=== PATIENT | male | born 1945 | race Caucasian/White ===

== ENCOUNTER 2017-04-19 07:01 | Inpatient (IN) | payer MEDICARE, BC ==
[~2017-04-19] VITALS: Ht 172.7 cm; Wt 81.0 kg
[2017-04-19] MEDS ORDERED: ONDANSETRON 4 MG INJ IV STA (07:19)
[2017-04-19] MEDS ORDERED: KETOROLAC 15 MG INJ IV STA (07:19)
[2017-04-19] MEDS ORDERED: SOD CHLORIDE 0.9% 1,000 ML IV STA (07:19)
--- NOTE | 2017-04-19 07:41 | ERD ---
ER Documentation Chief Complaint Chief Complaint sudden onset left flank pain with nausea and vomiting. no dysuria per pt HPI This is a 72-year-old man with a past medical history of hypertension, diabetes and a previous hernia repair who is presenting with acute onset severe sharp colicky left-sided flank pain radiating down into the left groin and nausea beginning at 330AM this morning. The patient does not carry a diagnosis of kidney stones in the past. He was given ibuprofen without relief which prompted the visit to the emergency department. The patient denies fever or chills, but he is sweating a little that he attributes to his left groin pain. The patient has had no headache or vision changes. The patient does not endorse neck or midline back pain. The patient denies lightheadedness or dizziness. The patient has had no chest pain or shortness of breath or trouble breathing. The patient denies vomiting. The patient denies changes to bowel movements or urination. He has not noticed any blood in his urine. The patient has had no focal deficits. The patient has had no weakness or numbness or tingling to the face or extremities. The patient's blood pressure is elevated. He did not take his blood pressure medications this morning. ROS All systems reviewed and are negative except as per history of present illness. Medications Home Meds Reported Medications Clonidine Patch (CLONIDINE PATCH) 0.3 Mg/24 Hr Patch, 1 PATCH.WK TD Q7D, #4 PATCH.WK 04/19/17 Nebivolol Hcl* (Bystolic*) 20 Mg Tablet, 20 MG PO DAILY, #30 TAB 04/19/17 Glimepiride* (Glimepiride*) 4 Mg Tablet, 4 MG PO BID WITH MEALS, TAB 04/19/17 Linagliptin/Metformin HCl (Jentadueto Xr 2.5 mg-1,000 mg) 1 Each Tab.bp.24h, 1 EACH PO BID, TAB 04/19/17 Allergies Allergies: Coded Allergies: No Known Allergy (Unverified , 04/19/17) PMhx/Soc History of Surgery: Yes (Hernia repair) Anesthesia Reaction: No Hx Neurological Disorder: No Hx Respiratory Disorders: No Hx Cardiac Disorders: Yes (HTN, DM) Hx Psychiatric Problems: No Hx Miscellaneous Medical Probl: No FmHx Family History: diabetes Physical Exam Vitals Vital Signs Date Time Temp Pulse Resp B/P Pulse Ox O2 Delivery O2 Flow Rate FiO2 04/19/17 10:40 94 15 214/98 97 Room Air 04/19/17 09:32 81 15 214/97 97 Room Air 04/19/17 07:06 97.8 75 16 250/106 100 Physical Exam Const: Mild distress 2/2 pain, mild diaphoresis, well-developed, well- nourished Head: Normocephalic, Atraumatic Eyes: Normal Conjunctiva. Extraocular movements intact. Pupils equal, round and reactive to light ENT: Normal External Ears, Nose and Mouth. Neck: Full range of motion. No meningismus. Resp: Clear to auscultation bilaterally, No wheezes, rales or rhonchi Cardio: Regular rate and rhythm. No murmurs, rubs or gallops Abd: Soft, non distended. Left lower quadrant abdominal pain with voluntary guarding. Normal bowel sounds Skin: No petechiae or rashes Back: No midline tenderness. Mild left sided CVA tenderness Ext: No cyanosis, or edema Neur: Awake and alert, oriented 4. Cranial nerves intact. No facial droop. Normal strength, sensation and coordination. Psych: Normal Mood and Affect Result Diagram: 04/19/1730 04/19/17 0730 Results 24 hrs Laboratory Tests Test 04/19/17 07:30 04/19/17 08:00 04/19/17 10:32 White Blood Count 13.510^3/ul Red Blood Count 5.6010^6/ul Hemoglobin 16.5g/dl Hematocrit 47.4% Mean Corpuscular Volume 84.6fl Mean Corpuscular Hemoglobin 29.5pg Mean Corpuscular Hemoglobin Concent 34.8g/dl Red Cell Distribution Width 13.2% Platelet Count 78738^3/UL Mean Platelet Volume 11.4fl Neutrophils % 86.0% Lymphocytes % 9.2% Monocytes % 3.9% Eosinophils % 0.0% Basophils % 0.2% Nucleated Red Blood Cells % 0.0/100WBC Neutrophils # 11.610^3/ul Lymphocytes # 1.210^3/ul Monocytes # 0.510^3/ul Eosinophils # 0.010^3/ul Basophils # 0.010^3/ul Nucleated Red Blood Cells # 0.010^3/ul Sodium Level 146mmol/L Potassium Level 3.8mmol/L Chloride Level 101mmol/L Carbon Dioxide Level 25mmol/L Anion Gap 24 Blood Urea Nitrogen 16mg/dl Creatinine 1.09mg/dl Glucose Level 302mg/dl Calcium Level 10.6mg/dl Total Bilirubin 0.7mg/dl Direct Bilirubin 0.00mg/dl Indirect Bilirubin 0.7mg/dl Aspartate Amino Transf (AST/SGOT) 69IU/L Alanine Aminotransferase (ALT/SGPT) 78IU/L Alkaline Phosphatase 83IU/L Total Protein 9.2g/dl Albumin 4.9g/dl Globulin 4.30g/dl Albumin/Globulin Ratio 1.13 Lipase 197U/L Urine Color STRAW Urine Clarity CLEAR Urine pH 7.0 Urine Specific [place] 1.010 Urine Ketones 1+mg/dL Urine Nitrite NEGATIVEmg/dL Urine Bilirubin NEGATIVEmg/dL Urine Urobilinogen NEGATIVEmg/dL Urine Leukocyte Esterase NEGATIVELeu/ul Urine Microscopic RBC 3/HPF Urine Microscopic WBC 0/HPF Urine Hemoglobin 1+mg/dL Urine Glucose 3+mg/dL Urine Total Protein NEGATIVEmg/dl Lactic Acid Level 5.8mmol/L Current Medications Medications (Trade) Dose Ordered Sig/Jose Ramon Route PRN Reason Start Time Stop Time Status Last Admin Dose Admin Sodium Chloride (NS) 1,000 ml @ 1,000 mls/hr Q1H STAT IV 04/19/17 07:19 04/19/17 08:18 DC 04/19/17 07:35 Ondansetron HCl (Zofran Inj) 4 mg ONCE STAT IV 04/19/17 07:19 04/19/17 07:20 DC 04/19/17 07:35 Ketorolac Tromethamine (Toradol) 15 mg ONCE STAT IV 04/19/17 07:19 04/19/17 07:20 DC 04/19/17 07:35 Morphine Sulfate (morphine) 6 mg ONCE ONCE IV 04/19/17 08:00 04/19/17 08:01 DC 04/19/17 08:06 Morphine Sulfate (morphine) 2 mg STK-MED ONCE .ROUTE 04/19/17 07:52 04/19/17 07:53 DC Morphine Sulfate (morphine) 4 mg STK-MED ONCE .ROUTE 04/19/17 07:53 04/19/17 07:54 DC IV Flush 10 ml 10 ml STK-MED ONCE .ROUTE 04/19/17 08:19 04/19/17 08:20 DC 04/19/17 08:34 Sodium Chloride (NS) 100 ml @ ud STK-MED ONCE .ROUTE 04/19/17 08:19 04/19/17 08:20 DC 04/19/17 08:34 Iodixanol 100 ml 100 ml STK-MED ONCE .ROUTE 04/19/17 08:19 04/19/17 08:20 DC 04/19/17 08:34 Ceftriaxone Sodium (Rocephin) 50 ml @ 100 mls/hr ONCE ONCE IVPB 04/19/17 09:00 04/19/17 09:29 DC 04/19/17 09:33 Hydromorphone HCl (Dilaudid) 1 mg ONCE STAT IV 04/19/17 08:50 04/19/17 08:52 DC 04/19/17 09:33 Hydralazine HCl (Apresoline) 10 mg ONCE ONCE IV 04/19/17 09:00 04/19/17 09:01 DC 04/19/17 09:33 Ondansetron HCl (Zofran Inj) 4 mg ER BRIDGE PRN IV NAUSEA AND/OR VOMITING 04/19/17 09:30 04/20/17 09:29 Acetaminophen 650 mg 650 mg ER BRIDGE PRN PO MILD PAIN/FEVER 04/19/17 09:30 04/20/17 09:29 Sodium Chloride (NS) 1,250 ml @ 1,000 mls/hr Q1H15M ONCE IV 04/19/17 09:30 04/19/17 10:44 DC 04/19/17 10:21 Miscellaneous Medication (Bystolic) 20 mg ONCE ONCE PO 04/19/17 10:30 04/19/17 10:31 DC 04/19/17 10:40 Clonidine (Catapres) 0.1 mg ONCE ONCE PO 04/19/17 10:30 04/19/17 10:31 DC 04/19/17 10:40 Procedures/MDM MDM The patient's presentation warrants further investigation. The patient's symptoms are concerning for a renal etiology of his symptoms. Nephrolithiasis is a possibility. The patient will need to be evaluated for pyelonephritis as well. I have decreased suspicion for gastroenteritis or obstruction. The patient has no pulsatile abdominal mass. I have low suspicion for AAA. The patient does have left lower quadrant tenderness. Diverticulitis is also possibility. The patient does not have peritoneal signs. I have decreased suspicion for bowel perforation. I have lower suspicion for mesenteric ischemia. LABS The patient's blood work was obtained and reviewed. The patient's CBC shows leukocytosis and left shift. The patient is afebrile, but I am concerned of a systemic infection. The patient is not anemic today. The patient does have a mild thrombocytopenia that does not need to be emergently treated. She does not have any signs of bleeding. The patient's CMP shows no signs of metabolic or electrolyte emergencies. He does have a mild hyperglycemia with an anion gap. However, given the localizing nature of his pain, I have less suspicion for DKA as the etiology of his symptoms. The patient will be given IV fluids in the emergency department. The patient has unremarkable renal function testing. He has a mild transaminitis that may be reactive. His lipase is within normal limits. The patient's lactic acid is within normal limits. EKG EKG read by me: Rate/Rhythm: Regular rate and rhythm at a rate of 80 Intervals: Normal [place] interval and QTc. Mildly prolonged QRS with signs that are consistent with right bundle branch block [place]: Left shifted Impression: Nonspecific repolarization abnormality but no evidence of acute ischemia or arrhythmia IMAGING CT abd/pelvis IMPRESSION: 1. 3 mm obstructing stone at the left ureterovesicular junction with mild left hydronephrosis and hydroureter. There is marked left perinephric and left periureteral inflammatory stranding and free fluid. Additional 4 mm left upper renal pole nonobstructing stone identified. 2. 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 Recommend urologic consultation. 3. Small sub-centimeter upper abdominal retroperitoneal lymph nodes are nonspecific. 4. 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 5. Tiny 4 mm hyperdense nodules at the gallbladder neck. This may represent small gallstones or gallbladder polyp. Electronically viewed and signed by .Jadiel Ragland MD, MD on 04/19/2017 08:41 TREATMENT/DISPOSITION The patient has left-sided urologic abnormalities that are concerning. There is possibility of ureteral stricture potentially related to neoplasm. There is also a nonobstructing zone out on the left-sided ureterovesicular junction. There is significant fat stranding around the area, and I am concerned about pyelonephritis. The patient received 30 mL/kg IV fluid in addition to Rocephin. Blood and urine cultures were sent off. Patient's infectious symptoms have not stabilized and the patient is at risk of rapid decompensation. The patient will be admitted for careful hydration, antibiotic therapy, and infectious source control. Severe Sepsis criteria: Infectious source: Pyelonephritis End organ damage indicated by: Lactate > 2.0 mmol/L Sepsis Management: Time of recognition of sepsis: 10:30AM Within 3 hours of recognition: Blood cultures x 2 before broad-spectrum antibiotics: Yes 30 ml/kg NS bolus: Completed Initial lactate: 5.8 Repeat lactate: Pending Time of recognition of septic shock: No septic shock Accepting Care Team Current data and ongoing care discussed. Admitting Physician: Micheline Microbiology Instructor(s): Will need Urology Outstanding Data: Culture results CRITICAL CARE NOTE Time: 35 minutes excluding all billable procedures. Treatments/Evaluations: Evaluation of the patient's medical record including previous records & current laboratory/imaging studies, close monitoring, potential interventions if hemodynamically unstable or cardiopulmonary decline or neurologic decline, maintaining tight fluid balance, any discussions with the family regarding the patient's status and prognosis. The patient will be admitted to Dr. Tobias in accordance with the patient's insurance. The patient was accepted by Dr. Tobias at 9:20 AM on April 19, 2017. The patient's blood pressure was elevated at greater than 120/80 while in the emergency department. The patient was otherwise stable with no evidence of hypertensive urgency or emergency or end organ damage. The patient was given hydralazine in the emergency department, but his blood pressure only slightly dropped. This will require further management in the hospital. Disclaimer: Inadvertent spelling and grammatical errors are likely due to EHR/ dictation software use and do not reflect on the overall quality of patient care. Note that the electronic time recorded on this note does not necessarily reflect the actual time of the patient encounter. Departure Diagnosis: Primary Impression: Pyelonephritis Additional Impressions: Ureteral obstruction Left nephrolithiasis Ureteral neoplasm Sepsis Sepsis type: sepsis due to unspecified organism Qualified Code: A41.9 - Sepsis, due to unspecified organism Condition: Serious NITZA PORTER MD Apr 19, 2017 07:41
[2017-04-19 07:46] LABS: BASOPHILS % 0.2 % (0.0-2.0); HEMATOCRIT 47.4 % (42.0-52.0); HEMOGLOBIN 16.5 g/dl (14.0-18.0); LYMPHOCYTES # 1.2 10^3/ul (0.8-2.9); LYMPHOCYTES % 9.2 % (15.0-51.0); MEAN CORPUSCULAR HEMOGLOBIN 29.5 pg (29.0-33.0); MEAN CORPUSCULAR HGB CONC 34.8 g/dl (32.0-37.0); MEAN CORPUSCULAR VOLUME 84.6 fl (82.0-101.0); MEAN PLATELET VOLUME 11.4 fl (7.4-10.4); MONOCYTE # 0.5 10^3/ul (0.3-0.9); MONOCYTES % 3.9 % (0.0-11.0); NEUTROPHIL # 11.6 10^3/ul (1.6-7.5); PLATELET COUNT 128 10^3/UL (140-415); RED CELL DISTRIBUTION WIDTH 13.2 % (11.5-14.5); WHITE BLOOD COUNT 13.5 10^3/ul (4.8-10.8)
[2017-04-19] MEDS ORDERED: morphine 2 MG INJ ONE (07:52)
[2017-04-19] MEDS ORDERED: morphine 4 MG/ML VIAL ONE (07:53)
[2017-04-19] MEDS ORDERED: morphine 10 MG INJ IV ONE (08:00)
[2017-04-19 08:13] LABS: ALBUMIN 4.9 g/dl (3.3-4.9); ALBUMIN/GLOBULIN RATIO 1.13; BILIRUBIN,INDIRECT 0.7 mg/dl (0-1.1); BILIRUBIN,TOTAL 0.7 mg/dl (0.2-1.3); CALCIUM 10.6 mg/dl (8.4-10.2); CREATININE 1.09 mg/dl (0.61-1.24); POTASSIUM 3.8 mmol/L (3.5-5.1); TOTAL PROTEIN 9.2 g/dl (6.1-8.1)
[2017-04-19] MEDS ORDERED: IODIXANOL LOCM 100 ML BTL ONE (08:19)
[2017-04-19] MEDS ORDERED: SOD CHLORIDE 0.9% 100 ML ONE (08:19)
[2017-04-19] MEDS ORDERED: LINA1TAB7 PO (08:31)
[2017-04-19] MEDS ORDERED: GLIM4TAB PO (08:31)
[2017-04-19] MEDS ORDERED: NEBI20TA2 PO (08:32)
[2017-04-19] MEDS ORDERED: CLON1PAT3 TD (08:34)
--- NOTE | 2017-04-19 08:41 | RADRPT ---
PROCEDURE: CT Abdomen and Pelvis with contrast. CLINICAL INDICATION: Abdominal pain TECHNIQUE: CT scan of the abdomen and pelvis with contrast was performed on a multidetector high-r esolution CT scanner. Coronal and sagittal reformatted images were obtained from the axial source im ages. Images were reviewed on a high-resolution PACS workstation. 80 cc of Isovue 300 iodinated cont rast was administered intravenously without reported complication. The total exam CTDI equals 13 mG y and the total exam DLP equals 839 mGy-cm. One or more of the following dose reduction techniques were used: Automated exposure control, Adjustment of the mA and/or kV according to patient size, and /or use of iterative reconstruction technique. DICOM images are available. COMPARISON: None. FINDINGS: Coronary arterial atherosclerosis. Nodular surface contour to the liver. No suspicious hepatic mass identified. Portal vein is patent. No pancreatic ductal dilatation. Spleen is enlarged. Adrenals are unremarkable. Tiny 4 mm hyperdense nodules at the gallbladder neck. 3 mm obstructing stone at the left ureterovesicular junction with mild left hydronephrosis and hydro ureter. There is marked left perinephric and left periureteral inflammatory stranding and free fluid . Additional 4 mm left upper renal pole nonobstructing stone identified. 3 cm right upper renal pole enhancing mass. Small sub-centimeter upper abdominal retroperitoneal lymph nodes are nonspecific. No bowel obstruction. Normal-caliber appendix. Fat containing left inguinal hernia. No evidence of pneumoperitoneum. Aortoiliac atherosclerosis. IMPRESSION: 3 mm obstructing stone at the left ureterovesicular junction with mild left hydronephrosis and hydro ureter. There is marked left perinephric and left periureteral inflammatory stranding and free fluid . Additional 4 mm left upper renal pole nonobstructing stone identified. 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 Recommend urologic cons ultation. Small sub-centimeter upper abdominal retroperitoneal lymph nodes are nonspecific. 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 Tiny 4 mm hyperdense nodules at the gallbladder neck. This may represent small gallstones or gallbla dder polyp. RPTAT: AA .Jadiel Ragland MD, MD Date Time Electronically viewed and signed by .Jadiel Ragland MD, on 04/19/2017 08:41 .T/
[2017-04-19] MEDS ORDERED: HYDROmorphONE 1 MG/ML SYG IV STA ×2 (08:50→12:17)
[2017-04-19] MEDS ORDERED: CEFTRIAXONE 1 GM/50 ML (PMX) 50 ML IVPB ONE (09:00)
[2017-04-19] MEDS ORDERED: hydrALAzine 20 MG INJ IV ONE (09:00)
[2017-04-19 09:05] LABS: ADD UMIC YES; UR ASCORBIC ACID NEGATIVE (NEGATIVE); UR BILIRUBIN (Dip) NEGATIVE (NEGATIVE); UR BLOOD (Dip) 1+ mg/dL (NEGATIVE); UR CLARITY CLEAR (CLEAR); UR COLOR STRAW (YELLOW); UR GLUCOSE (Dip) 3+ mg/dL (NEGATIVE); UR KETONES (Dip) 1+ mg/dL (NEGATIVE); UR LEUKOCYTE ESTERASE (Dip) NEGATIVE Leu/ul (NEGATIVE); UR NITRITE (Dip) NEGATIVE (NEGATIVE); UR RBC 3 /HPF (0-5); UR TOTAL PROTEIN (Dip) NEGATIVE (NEGATIVE); UR UROBILINOGEN (Dip) NEGATIVE (NEGATIVE)
[2017-04-19] MEDS ORDERED: ACETAMINOPHEN 325 MG TAB PO PRN ×2 (09:30→14:30)
[2017-04-19] MEDS ORDERED: SOD CHLORIDE 0.9% IV ONE (09:30)
[2017-04-19] MEDS ORDERED: NEBIVOLOL 5 MG TAB PO ONE (10:30)
[2017-04-19 13:02] VITALS: BP 221/105; PULSE 88; RESP 20; Ht 172.7 cm; Wt 81.0 kg
[2017-04-19] MEDS ORDERED: SOD CHLORIDE 0.9% 1,000 ML IV SCH (14:00)
[2017-04-19] MEDS ORDERED: ONDANSETRON 4 MG INJ IV PRN (14:30)
[2017-04-19] MEDS ORDERED: GLUCOSE GEL 15 GRAM TUBE BUCCAL PRN (14:30)
[2017-04-19] MEDS ORDERED: GLUCOSE GEL 15 GRAM TUBE PO PRN ×2 (14:30)
[2017-04-19] MEDS ORDERED: hydrALAzine 20 MG INJ IV PRN ×2 (14:30→20:00)
[2017-04-19] MEDS ORDERED: GLUCAGON 1 MG INJ IM PRN (14:30)
[2017-04-19] MEDS ORDERED: DEXTROSE 50% 50 ML SYRINGE IV PRN ×2 (14:30)
[2017-04-19 16:00] VITALS: PULSE 82
[2017-04-19] MEDS ORDERED: CLONIDINE 0.3 MG/24 HR PATCH TRANSDERM SCH (16:00)
[2017-04-19] MEDS ORDERED: LOSARTAN 50 MG TAB PO SCH (16:30)
[2017-04-19] MEDS: ONDANSETRON 4 MG INJ IV PRN ×2 (17:24→22:27)
[2017-04-19] MEDS: morphine 2 MG INJ IV PRN ×2 (17:25→20:05)
[2017-04-19] MEDS: INSULIN ASPART [NOVOLOG] 3 ML PEN SC SCH ×2 (17:50→21:00)
--- NOTE | 2017-04-19 19:18 | HP ---
Date/Time of Note Date/Time of Note DATE: 04/19/17 TIME: 18:35 Assessment/Plan VTE Prophylaxis VTE Prophylaxis Intervention: other Lines/Catheters IV Catheter Type (from Nrs): Saline Lock Assessment/Plan Assessment/Plan Pyelonephritis UTI - on Rocephin Ureteral obstruction Left nephrolithiasis - urology consult- Dr North notified Ureteral neoplasm Sepsis DW STAFF HPI/ROS Admit Date/Time Admit Date/Time Apr 19, 2017 at 09:10 ROS HPI This is a 72-year-old man with a past medical history of hypertension, diabetes and a previous hernia repair who is presenting with acute onset severe sharp colicky left-sided flank pain radiating down into the left groin and nausea beginning at 330AM this morning. The patient does not carry a diagnosis of kidney stones in the past. He was given ibuprofen without relief which prompted the visit to the emergency department. The patient denies fever or chills, but he is sweating a little that he attributes to his left groin pain. The patient has had no headache or vision changes. The patient does not endorse neck or midline back pain. The patient denies lightheadedness or dizziness. The patient has had no chest pain or shortness of breath or trouble breathing. The patient denies vomiting. The patient denies changes to bowel movements or urination. He has not noticed any blood in his urine. The patient has had no focal deficits. The patient has had no weakness or numbness or tingling to the face or extremities. The patient's blood pressure is elevated. He did not take his blood pressure medications this morning. Allergies No Known Allergy (Unverified , 04/19/17) PMhx/Soc History of Surgery: Yes (Hernia repair) Anesthesia Reaction: No Hx Neurological Disorder: No Hx Respiratory Disorders: No Hx Cardiac Disorders: Yes (HTN, DM) Hx Psychiatric Problems: No Hx Miscellaneous Medical Probl: No FmHx Family History: diabetes Respiratory: no complaints Cardiovascular: no complaints Gastrointestinal: no complaints Genitourinary: flank pain (Left flank pain) Musculoskeletal: no complaints Skin: no complaints PMH/Family/Social Social History Smoking Status: Never smoker Exam/Review of Systems Vital Signs Vitals Vital Signs Date Time Temp Pulse Resp B/P Pulse Ox O2 Delivery O2 Flow Rate FiO2 04/19/17 16:00 82 04/19/17 13:02 98.1 20 221/105 95 Room Air Exam Constitutional: alert, oriented, well developed Respiratory: diminished breath sounds, normal air movement Cardiovascular: nl pulses, other (S1 and S2) Gastrointestinal: non-tender, soft Musculoskeletal: nl extremities to inspection Extremities: normal pulses Neurological: nl mental status, nl speech Labs Result Diagram: 04/19/17 0730 04/19/17 0730 Medications Medications Current Medications Clonidine HCl (Catapres-Tts 3 Patch) 1 patch Q7D TRANSDERM Last administered on 04/19/17 16:16; Admin Dose 1 PATCH; Start 04/19/17 at 16:00 Miscellaneous Medication (Bystolic) 20 mg DAILY PO ; Start 04/20/17 at 09:00 Diagnostic Test (Pha) 1 ea 1 ea 02 XX ; Start 04/20/17 at 02:00 Ceftriaxone Sodium (Rocephin) 50 ml @ 100 mls/hr Q24H IVPB ; Start 04/20/17 at 09:00 Hydralazine HCl (Apresoline) 10 mg Q6H PRN IV ELEVATED BLOOD PRESSURE; Start 04/19/17 at 14:30 Morphine Sulfate (morphine) 2 mg Q4H PRN IV PAIN LEVEL 7-10 Last administered on 04/19/17 17:25; Admin Dose 2 MG; Start 04/19/17 at 14:30 Ondansetron HCl (Zofran Inj) 4 mg Q6H PRN IV NAUSEA AND/OR VOMITING; Start at 14:30 Acetaminophen (Tylenol Tab) 650 mg Q6H PRN PO PAIN AND OR ELEVATED TEMP; Start 04/19/17 at 14:30 Miscellaneous Information 1 ea NOTE XX ; Start 04/19/17 at 14:30 Glucose (Glutose) 15 gm Q15M PRN PO DECREASED GLUCOSE; Start 04/19/17 at 14:30 Glucose (Glutose) 22.5 gm Q15M PRN PO DECREASED GLUCOSE; Start 04/19/17 at 14: 30 Dextrose (D50w Syringe) 25 ml Q15M PRN IV DECREASED GLUCOSE; Start 04/19/17 at 14:30 Dextrose (D50w Syringe) 50 ml Q15M PRN IV DECREASED GLUCOSE; Start 04/19/17 at 14:30 Glucagon (Glucagen) 1 mg Q15M PRN IM DECREASED GLUCOSE; Start 04/19/17 at 14: 30 Glucose (Glutose) 15 gm Q15M PRN BUCCAL DECREASED GLUCOSE; Start 04/19/17 at 14:30 Influenza Virus Vaccine 0.5 ml 0.5 ml ONCE ONCE IM* ; Start 04/20/17 at 09:00; Stop 04/20/17 at 09:01 Potassium Chloride/Sodium Chloride (1/2 NS + KCl 20 Meq) 1,000 ml @ 75 mls/hr [id number] IV ; Start 04/19/17 at 16:30 Losartan Potassium (Cozaar) 50 mg DAILY PO ; Start 04/19/17 at 16:30 Insulin Glargine (Lantus) 10 unit DAILY@08 SC ; Start 04/20/17 at 08:00 Procedures Procedures EKG EKG r Rate/Rhythm: Regular rate and rhythm at a rate of 80 Intervals: Normal [place] interval and QTc. Mildly prolonged QRS with signs that are consistent with right bundle branch block [place]: Left shifted Impression: Nonspecific repolarization abnormality but no evidence of acute ischemia or arrhythmia IMAGING CT abd/pelvis IMPRESSION: 1. 3 mm obstructing stone at the left ureterovesicular junction with mild left hydronephrosis and hydroureter. There is marked left perinephric and left periureteral inflammatory stranding and free fluid. Additional 4 mm left upper renal pole nonobstructing stone identified. 2. 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 Recommend urologic consultation. 3. Small sub-centimeter upper abdominal retroperitoneal lymph nodes are nonspecific. 4. 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 5. Tiny 4 mm hyperdense nodules at the gallbladder neck. This may represent small gallstones or gallbladder polyp. Electronically viewed and signed by .Jadiel Ragland MD, MD on 04/19/2017 08:41 EULA DOWD Apr 19, 2017 18:45
--- NOTE | 2017-04-19 19:42 | CONS ---
Date/Time of Note Date/Time of Note DATE: 04/19/17 TIME: 19:35 Assessment/Plan Assessment/Plan Chief Complaint/Hosp Course 1. HTN urgency 2. Acute nephrolithiasis 3. Diabetes 4. Rule out dyslipidemia 5. Abnormal EKG due to above 6. Abnormal CT scan finding rule out malignancy Recommendations: Diabetic management as per internal medicine IV fluid has been started. Consider urology consultation. I will continue with the Bystolic 20 mg p.o. twice daily. Clonidine patch will be continued as well. I will add captopril 50 mg p.o. every 6 hours for now and consider adjusting it as needed. Laboratory IV will be given as well as needed basis. Echocardiogram will be checked in the morning. Labetalol IV will be given Thank you for his referral. We will continue to follow along with you. KIRSTIN ULRICH MD [facility] Problems: Consultation Date/Type/Reason Admit Date/Time Apr 19, 2017 at 09:10 Date of Consultation: Apr 19, 2017 Type of Consultation: cardiology Reason for Consultation poorly controlled HTN Referring Provider: EULA DOWD Hx of Present Illness CC: Left flank pain HPI: Thank you for his referral. History was obtained from the patient on discussion with his discussion with Dr. Dowd. This is a pleasant 9-year-old [place] gentleman with history of hypertension diabetes who presented to emergency room with complaints of left flank pain which started today. Workup has shown kidney stone. Patient complains of severe pain. He denies any nausea vomiting to me.. He denies any hematuria. His blood pressure has been markedly elevated above 200 persistently despite getting his home medications of Bystolic and clonidine patch. I was currently asked to evaluate and assist in management of his blood pressure. He denies any chest pain or pressure to me denies any palpitation to me. According to the patient is 5 his blood pressure normally is elevated around 160 at home. PMH: HTN DM dyslipidemia? Medication At Home was reviewed as per medical reconciliation which were personally reviewed. He takes clonidine patch as well as Bystolic 20 mg p.o. twice daily for his blood pressure Social history: Patient quit smoking many years ago. Does not drink. Allergies: No reported drug allergies Family history denies any early coronary artery disease in the family. Review of system as above mentioned only. He denies all except per above. Respiratory: no complaints Cardiovascular: no complaints Gastrointestinal: no complaints Genitourinary: flank pain (Left flank pain) Musculoskeletal: no complaints Skin: no complaints Social History Smoking Status: Never smoker Exam/Review of Systems Vital Signs Vitals Vital Signs Date Time Temp Pulse Resp B/P Pulse Ox O2 Delivery O2 Flow Rate FiO2 04/19/17 16:00 82 04/19/17 13:02 98.1 20 221/105 95 Room Air Exam General: no acute distress HEENT: NC/AT. pupils are equal. round. NECK: NO JVD. no stridor. CV: RRR. systolic murmur; no gallop or rubs. PULM: no wheezing or rhonchi. GI: SOFT, NT, ND, no rebound or guarding Extremity: trace B/L LE edema. no clubbing. neuro: awake and alert, OX3. Psych: calm and pleasant rectal: deferred : deferred ECG NSR nonspecific T wave abn CT abd: 3 mm obstructing stone at the left ureterovesicular junction with mild left hydronephrosis and hydroureter. There is marked left perinephric and left periureteral inflammatory stranding and free fluid. Additional 4 mm left upper renal pole nonobstructing stone identified. 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 Recommend urologic consultation. Small sub-centimeter upper abdominal retroperitoneal lymph nodes are nonspecific. 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 Tiny 4 mm hyperdense nodules at the gallbladder neck. This may represent small gallstones or gallbladder polyp. Results Result Diagram: 04/19/17 0730 04/19/17 0730 Results 24 hrs Laboratory Tests Test 04/19/17 07:30 04/19/17 08:00 04/19/17 10:32 04/19/17 13:47 White Blood Count 13.5 H Red Blood Count 5.60 Hemoglobin 16.5 Hematocrit 47.4 Mean Corpuscular Volume 84.6 Mean Corpuscular Hemoglobin 29.5 Mean Corpuscular Hemoglobin Concent 34.8 Red Cell Distribution Width 13.2 Platelet Count 128 L Mean Platelet Volume 11.4 H Neutrophils % 86.0 H Lymphocytes % 9.2 L Monocytes % 3.9 Eosinophils % 0.0 Basophils % 0.2 Nucleated Red Blood Cells % 0.0 Neutrophils # 11.6 H Lymphocytes # 1.2 Monocytes # 0.5 Eosinophils # 0.0 Basophils # 0.0 Nucleated Red Blood Cells # 0.0 Sodium Level 146 H Potassium Level 3.8 Chloride Level 101 Carbon Dioxide Level 25 Anion Gap 24 H Blood Urea Nitrogen 16 Creatinine 1.09 Glucose Level 302 H Calcium Level 10.6 H Total Bilirubin 0.7 Direct Bilirubin 0.00 Indirect Bilirubin 0.7 Aspartate Amino Transf (AST/SGOT) 69 H Alanine Aminotransferase (ALT/SGPT) 78 H Alkaline Phosphatase 83 Total Protein 9.2 H Albumin 4.9 Globulin 4.30 H Albumin/Globulin Ratio 1.13 Lipase 197 Urine Color STRAW Urine Clarity CLEAR Urine pH 7.0 Urine Specific [place] 1.010 Urine Ketones 1+ H Urine Nitrite NEGATIVE Urine Bilirubin NEGATIVE Urine Urobilinogen NEGATIVE Urine Leukocyte Esterase NEGATIVE Urine Microscopic RBC 3 Urine Microscopic WBC 0 Urine Hemoglobin 1+ H Urine Glucose 3+ H Urine Total Protein NEGATIVE Lactic Acid Level 5.8 *H Bedside Glucose 267 H Test 04/19/17 17:45 Bedside Glucose 207 Medications Medications Current Medications Clonidine HCl (Catapres-Tts 3 Patch) 1 patch Q7D TRANSDERM Last administered on 04/19/17 16:16; Admin Dose 1 PATCH; Start 04/19/17 at 16:00 Diagnostic Test (Pha) 1 ea 1 ea 02 XX ; Start 04/20/17 at 02:00 Ceftriaxone Sodium (Rocephin) 50 ml @ 100 mls/hr Q24H IVPB ; Start 04/20/17 at 09:00 Hydralazine HCl (Apresoline) 10 mg Q6H PRN IV ELEVATED BLOOD PRESSURE; Start 04/19/17 at 14:30 Morphine Sulfate (morphine) 2 mg Q4H PRN IV PAIN LEVEL 7-10 Last administered on 04/19/17 17:25; Admin Dose 2 MG; Start 04/19/17 at 14:30 Ondansetron HCl (Zofran Inj) 4 mg Q6H PRN IV NAUSEA AND/OR VOMITING; Start at 14:30 Acetaminophen (Tylenol Tab) 650 mg Q6H PRN PO PAIN AND OR ELEVATED TEMP; Start 04/19/17 at 14:30 Miscellaneous Information 1 ea NOTE XX ; Start 04/19/17 at 14:30 Glucose (Glutose) 15 gm Q15M PRN PO DECREASED GLUCOSE; Start 04/19/17 at 14:30 Glucose (Glutose) 22.5 gm Q15M PRN PO DECREASED GLUCOSE; Start 04/19/17 at 14: 30 Dextrose (D50w Syringe) 25 ml Q15M PRN IV DECREASED GLUCOSE; Start 04/19/17 at 14:30 Dextrose (D50w Syringe) 50 ml Q15M PRN IV DECREASED GLUCOSE; Start 04/19/17 at 14:30 Glucagon (Glucagen) 1 mg Q15M PRN IM DECREASED GLUCOSE; Start 04/19/17 at 14: 30 Glucose (Glutose) 15 gm Q15M PRN BUCCAL DECREASED GLUCOSE; Start 04/19/17 at 14:30 Influenza Virus Vaccine 0.5 ml 0.5 ml ONCE ONCE IM* ; Start 04/20/17 at 09:00; Stop 04/20/17 at 09:01 Potassium Chloride/Sodium Chloride (1/2 NS + KCl 20 Meq) 1,000 ml @ 75 mls/hr [id number] IV ; Start 04/19/17 at 16:30 Insulin Glargine (Lantus) 10 unit DAILY@08 SC ; Start 04/20/17 at 08:00 Miscellaneous Medication (Bystolic) 20 mg BID PO ; Start 04/19/17 at 21:00; Status UNV Hydralazine HCl (Apresoline) 20 mg Q2H PRN IV SBP > 180; Start 04/19/17 at 20: 00; Status UNV Captopril (Capoten) 50 mg QID PO ; Start 04/19/17 at 21:00; Status UNV KIRSTIN ULRICH MD Apr 19, 2017 19:41
[2017-04-19] MEDS: 1/2 NS + KCL 20 MEQ 1,000 ML IV SCH (19:56)
[2017-04-19 20:00] VITALS: BP 146/73; PULSE 83; PULSE 85; RESP 18
--- NOTE | 2017-04-19 20:58 | CONS ---
Date/Time of Note Date/Time of Note DATE: 04/19/17 TIME: 20:49 Assessment/Plan Assessment/Plan Chief Complaint/Hosp Course 72-year-old male presented to the hospital emergency room was left flank pain associated with nausea but no vomiting. CT scan of the abdomen and pelvis with IV contrast showed a 3 mm stone in the distal left ureter at the ureterovesical junction. It did also show a 3 cm enhancing tumor mass in the upper pole of the right kidney. 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 Problems: Consultation Date/Type/Reason Admit Date/Time Apr 19, 2017 at 09:10 Date of Consultation: Apr 19, 2017 Type of Consultation: Urology Reason for Consultation Distal left ureteral stone and right renal tumor Referring Provider: CHAN WELCH MD Hx of Present Illness 72-year-old male presented to the emergency room was left flank pain associated with nausea and vomiting. Patient underwent CT scan of the abdomen and pelvis was found to have distal left ureteral stone was obstruction. Also it showed a tumor that is enhancing in the upper pole of the right kidney. Constitutional: no complaints, No chills Eyes: no complaints ENT: no complaints Respiratory: no complaints Cardiovascular: no complaints Gastrointestinal: no complaints, No nausea (He did have nausea before but not now), No vomiting Genitourinary: flank pain (Left flank), No dysuria Musculoskeletal: no complaints Skin: no complaints Neurologic: no complaints Endocrine: no complaints Lymphatic: no complaints Psychological: no complaints Immunologic: no complaints Past Medical History Medical History: diabetes, hypertension Past Surgical History Past Surgical Hx: other (Right inguinal hernia repair) Family History Significant Family History: no pertinent family hx Social History Alcohol Use: occasionally Smoking Status: Never smoker Exam/Review of Systems Vital Signs Vitals Vital Signs Date Time Temp Pulse Resp B/P Pulse Ox O2 Delivery O2 Flow Rate FiO2 04/19/17 20:00 85 04/19/17 13:02 98.1 20 221/105 95 Room Air Exam Constitutional: alert, oriented Psych: no complaints Head: normocephalic Eyes: nl conjunctiva ENMT: nl external ears & nose Neck: non-tender, No jvd Respiratory: normal air movement Cardiovascular: No edema, No jugular venous distention (JVD) Gastrointestinal: soft Genitourinary - Male: CVA tenderness (Left flank), nl penis, nl scrotum Musculoskeletal: nl extremities to inspection Extremities: No calf tenderness Neurological: nl mental status Skin: nl turgor Results Result Diagram: 04/19/17 0730 04/19/17 0730 Results 24 hrs Laboratory Tests Test 04/19/17 07:30 04/19/17 08:00 04/19/17 10:32 04/19/17 13:47 White Blood Count 13.5 H Red Blood Count 5.60 Hemoglobin 16.5 Hematocrit 47.4 Mean Corpuscular Volume 84.6 Mean Corpuscular Hemoglobin 29.5 Mean Corpuscular Hemoglobin Concent 34.8 Red Cell Distribution Width 13.2 Platelet Count 128 L Mean Platelet Volume 11.4 H Neutrophils % 86.0 H Lymphocytes % 9.2 L Monocytes % 3.9 Eosinophils % 0.0 Basophils % 0.2 Nucleated Red Blood Cells % 0.0 Neutrophils # 11.6 H Lymphocytes # 1.2 Monocytes # 0.5 Eosinophils # 0.0 Basophils # 0.0 Nucleated Red Blood Cells # 0.0 Sodium Level 146 H Potassium Level 3.8 Chloride Level 101 Carbon Dioxide Level 25 Anion Gap 24 H Blood Urea Nitrogen 16 Creatinine 1.09 Glucose Level 302 H Calcium Level 10.6 H Total Bilirubin 0.7 Direct Bilirubin 0.00 Indirect Bilirubin 0.7 Aspartate Amino Transf (AST/SGOT) 69 H Alanine Aminotransferase (ALT/SGPT) 78 H Alkaline Phosphatase 83 Total Protein 9.2 H Albumin 4.9 Globulin 4.30 H Albumin/Globulin Ratio 1.13 Lipase 197 Urine Color STRAW Urine Clarity CLEAR Urine pH 7.0 Urine Specific [place] 1.010 Urine Ketones 1+ H Urine Nitrite NEGATIVE Urine Bilirubin NEGATIVE Urine Urobilinogen NEGATIVE Urine Leukocyte Esterase NEGATIVE Urine Microscopic RBC 3 Urine Microscopic WBC 0 Urine Hemoglobin 1+ H Urine Glucose 3+ H Urine Total Protein NEGATIVE Lactic Acid Level 5.8 *H Bedside Glucose 267 H Test 04/19/17 17:45 04/19/17 20:11 Bedside Glucose 207 160 Imaging Free Text/Dictation CT scan of the abdomen and pelvis with IV contrast: 3 mm obstructing stone at the left ureterovesicular junction with mild left hydronephrosis and hydroureter. There is marked left perinephric and left periureteral inflammatory stranding and free fluid. Additional 4 mm left upper renal pole nonobstructing stone identified. 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 Recommend urologic consultation. Small sub-centimeter upper abdominal retroperitoneal lymph nodes are nonspecific. 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 Tiny 4 mm hyperdense nodules at the gallbladder neck. This may represent small gallstones or gallbladder polyp. RPTAT: AA Medications Medications Current Medications Clonidine HCl (Catapres-Tts 3 Patch) 1 patch Q7D TRANSDERM Last administered on 04/19/17 16:16; Admin Dose 1 PATCH; Start 04/19/17 at 16:00 Diagnostic Test (Pha) 1 ea 1 ea 02 XX ; Start 04/20/17 at 02:00 Ceftriaxone Sodium (Rocephin) 50 ml @ 100 mls/hr Q24H IVPB ; Start 04/20/17 at 09:00 Hydralazine HCl (Apresoline) 10 mg Q6H PRN IV ELEVATED BLOOD PRESSURE; Start 04/19/17 at 14:30 Morphine Sulfate (morphine) 2 mg Q4H PRN IV PAIN LEVEL 7-10 Last administered on 04/19/17 20:05; Admin Dose 2 MG; Start 04/19/17 at 14:30 Ondansetron HCl (Zofran Inj) 4 mg Q6H PRN IV NAUSEA AND/OR VOMITING; Start at 14:30 Acetaminophen (Tylenol Tab) 650 mg Q6H PRN PO PAIN AND OR ELEVATED TEMP; Start 04/19/17 at 14:30 Miscellaneous Information 1 ea NOTE XX ; Start 04/19/17 at 14:30 Glucose (Glutose) 15 gm Q15M PRN PO DECREASED GLUCOSE; Start 04/19/17 at 14:30 Glucose (Glutose) 22.5 gm Q15M PRN PO DECREASED GLUCOSE; Start 04/19/17 at 14: 30 Dextrose (D50w Syringe) 25 ml Q15M PRN IV DECREASED GLUCOSE; Start 04/19/17 at 14:30 Dextrose (D50w Syringe) 50 ml Q15M PRN IV DECREASED GLUCOSE; Start 04/19/17 at 14:30 Glucagon (Glucagen) 1 mg Q15M PRN IM DECREASED GLUCOSE; Start 04/19/17 at 14: 30 Glucose (Glutose) 15 gm Q15M PRN BUCCAL DECREASED GLUCOSE; Start 04/19/17 at 14:30 Influenza Virus Vaccine 0.5 ml 0.5 ml ONCE ONCE IM* ; Start 04/20/17 at 09:00; Stop 04/20/17 at 09:01 Potassium Chloride/Sodium Chloride (1/2 NS + KCl 20 Meq) 1,000 ml @ 75 mls/hr [id number] IV Last administered on 04/19/17t 19:56; Admin Dose 75 MLS/HR; Start 04/19/17 at 16:30 Insulin Glargine (Lantus) 10 unit DAILY@08 SC ; Start 04/20/17 at 08:00 Miscellaneous Medication (Bystolic) 20 mg BID PO ; Start 04/19/17 at 21:00 Hydralazine HCl (Apresoline) 20 mg Q2H PRN IV SBP > 180; Start 04/19/17 at 20: 00 Captopril (Capoten) 50 mg QID PO ; Start 04/19/17 at 21:00 PRINCESS BURGOS MD Apr 19, 2017 20:58
[2017-04-20] VITALS (10 sets, daily range): BP systolic 119–187; BP diastolic 63–91; PULSE 70–80; RESP 18–19
[2017-04-20] MEDS: morphine 2 MG INJ IV PRN ×2 (00:04→14:46)
[2017-04-20] MEDS: NEBIVOLOL 5 MG TAB PO SCH ×3 (00:46→21:15)
[2017-04-20] MEDS: ACCU-CHEK XX SCH (02:00)
[2017-04-20] MEDS: KETOROLAC 30 MG INJ IV PRN ×4 (02:42→18:41)
[2017-04-20] MEDS: 1/2 NS + KCL 20 MEQ 1,000 ML IV SCH ×2 (05:50→08:52)
[2017-04-20 05:58] LABS: ABNORMAL IP MESSAGE 1; BASOPHILS % 0.1 % (0.0-2.0); EOSINOPHILS % 0.1 % (0.0-7.0); HEMATOCRIT 37.5 % (42.0-52.0); LYMPHOCYTES # 1.9 10^3/ul (0.8-2.9); MEAN CORPUSCULAR HEMOGLOBIN 29.5 pg (29.0-33.0); MEAN CORPUSCULAR HGB CONC 34.7 g/dl (32.0-37.0); MEAN PLATELET VOLUME 11.2 fl (7.4-10.4); MONOCYTE # 0.7 10^3/ul (0.3-0.9); MONOCYTES % 6.5 % (0.0-11.0); NEUTROPHIL # 8.6 10^3/ul (1.6-7.5); NEUTROPHILS % 75.9 % (39.0-77.0); PLATELET COUNT 88 10^3/UL (140-415); POSITIVE DIFF @See below; RED BLOOD COUNT 4.41 10^6/ul (4.70-6.10); RED CELL DISTRIBUTION WIDTH 13.5 % (11.5-14.5); WHITE BLOOD COUNT 11.3 10^3/ul (4.8-10.8)
[2017-04-20 06:38] LABS: ALBUMIN 3.8 g/dl (3.3-4.9); ALBUMIN/GLOBULIN RATIO 1.18; BILIRUBIN,INDIRECT 0.3 mg/dl (0-1.1); BILIRUBIN,TOTAL 0.3 mg/dl (0.2-1.3); CALCIUM 8.5 mg/dl (8.4-10.2); CHOL/HDL RATIO 3.8 RATIO; CREATININE 1.32 mg/dl (0.61-1.24); MAGNESIUM 1.4 mg/dl (1.7-2.5)
[2017-04-20 06:42] LABS: INR 1.08; PARTIAL THROMBOPLASTIN TIME 28.8 Sec (25.0-35.0); PT RATIO 1.1
[2017-04-20 07:34] LABS: THYROID STIMULATING HORMONE 1.1 MIU/L (0.465-4.680)
[2017-04-20] MEDS ORDERED: INSULIN GLARGINE [LANtus] 3 ML PEN SC SCH (08:00)
[2017-04-20] MEDS: INSULIN ASPART [NOVOLOG] 3 ML PEN SC SCH ×7 (08:42→21:39)
[2017-04-20] MEDS ORDERED: NEBIVOLOL 5 MG TAB PO SCH (09:00)
[2017-04-20] MEDS ORDERED: INFLUENZA VIRUS VACCINE 0.5 ML SYG IM* ONE (09:00)
[2017-04-20] MEDS ORDERED: CEFTRIAXONE 1 GM/50 ML (PMX) 50 ML IVPB SCH (09:00)
--- NOTE | 2017-04-20 10:52 | RADRPT ---
PROCEDURE: XR Abdomen. CLINICAL INDICATION: Distal left ureteric stone. TECHNIQUE: AP abdomen x-ray. COMPARISON: Correlation with CT 04/19/2017. FINDINGS: There is a nonspecific bowel gas pattern without evidence of obstruction. Scattered stool throughou t the colon. Free intraperitoneal air cannot be entirely excluded on non-upright radiographs. The urinary bladder is decompressed and contains residual contrast from prior CT study. Distal left ureteric stone is not visualized and maybe obscured. There is no acute osseous abnormality. The visualized lung bases are clear. IMPRESSION: 1. Previously noted distal left ureteric stone not visualized and may be obscured secondary to resid ual contrast within a decompressed urinary bladder. 2. Nonspecific bowel gas pattern without evidence of obstruction. RPTAT: EE Physician Ramon Date Time Electronically viewed and signed by Arielle Arellano Physician on 04/20/2017 10:52 PH/
--- NOTE | 2017-04-20 14:47 | PN ---
Date/Time of Note Date/Time of Note DATE: 04/20/17 TIME: 14:43 Assessment/Plan VTE Prophylaxis VTE Prophylaxis Intervention: SCD's Lines/Catheters IV Catheter Type (from Nrsg): Saline Lock Assessment/Plan Chief Complaint/Hosp Course Patient stated that his pain is so well controlled and current medication last about 4-5 hours. Blood pressure is stable when patient not in pain. Problems: Assessment/Plan -Acute nephrolithiasis, 3mm stone in the distal left ureter. Dr. North is following in neurology consultation. Continue pain management antibiotics and Flomax. Continue to strain urine. -Left kidney pole mass, possible partial nephrectomy as an outpatient -Hypertensive urgency, Dr Lopez is following in cardiology consultation -Diabetes mellitus with hemoglobin A1c 7.9. Continue Lantus and NovoLog. Further recommendation based on clinical course. Plan of care discussed with Dr. Tobias. Exam/Review of Systems Vital Signs Vitals Vital Signs Date Time Temp Pulse Resp B/P Pulse Ox O2 Delivery O2 Flow Rate FiO2 04/20/17 12:00 98.0 70 18 178/84 97 Room Air Exam Constitutional: alert, oriented Head: normocephalic Neck: supple Respiratory: normal air movement Cardiovascular: nl pulses Gastrointestinal: non-tender, soft Musculoskeletal: nl extremities to inspection Extremities: normal pulses Results Result Diagram: 04/20/170 04/20/17 0441 Results 24 hrs Laboratory Tests Test 04/19/17 17:45 04/19/17 20:11 04/20/17 02:50 04/20/17 04:40 Bedside Glucose 207 160 127 White Blood Count 11.3 H Red Blood Count 4.41 #L Hemoglobin 13.0 #L Hematocrit 37.5 #L Mean Corpuscular Volume 85.0 Mean Corpuscular Hemoglobin 29.5 Mean Corpuscular Hemoglobin Concent 34.7 Red Cell Distribution Width 13.5 Platelet Count 88 #L Mean Platelet Volume 11.2 H Neutrophils % 75.9 Lymphocytes % 17.0 Monocytes % 6.5 Eosinophils % 0.1 Basophils % 0.1 Nucleated Red Blood Cells % 0.0 Neutrophils # 8.6 H Lymphocytes # 1.9 Monocytes # 0.7 Eosinophils # 0.0 Basophils # 0.0 Nucleated Red Blood Cells # 0.0 Test 04/20/17 04:41 04/20/17 07:40 04/20/17 12:31 Prothrombin Time 14.0 Prothrombin Time Ratio 1.1 INR International Normalized Ratio 1.08 Activated Partial Thromboplast Time 28.8 Sodium Level 139 Potassium Level 4.0 Chloride Level 105 Carbon Dioxide Level 23 Anion Gap 15 # Blood Urea Nitrogen 22 H Creatinine 1.32 H Glucose Level 136 # Hemoglobin A1c 7.9 H Calcium Level 8.5 Magnesium Level 1.4 L Total Bilirubin 0.3 Direct Bilirubin 0.00 Indirect Bilirubin 0.3 Aspartate Amino Transf (AST/SGOT) 43 Alanine Aminotransferase (ALT/SGPT) 62 Alkaline Phosphatase 52 Creatine Kinase 91 Total Protein 7.0 # Albumin 3.8 # Globulin 3.20 Albumin/Globulin Ratio 1.18 Triglycerides Level 129 Cholesterol Level 145 LDL Cholesterol, Calculated 81 HDL Cholesterol 38 Cholesterol/HDL Ratio 3.8 Thyroid Stimulating Hormone (TSH) 1.100 Free Thyroxine 1.09 Bedside Glucose 195 167 Medications Medications Current Medications Clonidine HCl (Catapres-Tts 3 Patch) 1 patch Q7D TRANSDERM Last administered on 04/19/17 16:16; Admin Dose 1 PATCH; Start 04/19/17 at 16:00 Diagnostic Test (Pha) 1 ea 1 ea 02 XX ; Start 04/20/17 at 02:00 Ceftriaxone Sodium (Rocephin) 50 ml @ 100 mls/hr Q24H IVPB Last administered on 04/20/17 08:36; Admin Dose 100 MLS/HR; Start 04/20/17 at 09:00 Hydralazine HCl (Apresoline) 10 mg Q6H PRN IV ELEVATED BLOOD PRESSURE; Start 04/19/17 at 14:30 Morphine Sulfate (morphine) 2 mg Q4H PRN IV PAIN LEVEL 7-10 Last administered on 04/20/17 00:04; Admin Dose 2 MG; Start 04/19/17 at 14:30 Ondansetron HCl (Zofran Inj) 4 mg Q6H PRN IV NAUSEA AND/OR VOMITING; Start at 14:30 Acetaminophen (Tylenol Tab) 650 mg Q6H PRN PO PAIN AND OR ELEVATED TEMP; Start 04/19/17 at 14:30 Miscellaneous Information 1 ea NOTE XX ; Start 04/19/17 at 14:30 Glucose (Glutose) 15 gm Q15M PRN PO DECREASED GLUCOSE; Start 04/19/17 at 14:30 Glucose (Glutose) 22.5 gm Q15M PRN PO DECREASED GLUCOSE; Start 04/19/17 at 14: 30 Dextrose (D50w Syringe) 25 ml Q15M PRN IV DECREASED GLUCOSE; Start 04/19/17 at 14:30 Dextrose (D50w Syringe) 50 ml Q15M PRN IV DECREASED GLUCOSE; Start 04/19/17 at 14:30 Glucagon (Glucagen) 1 mg Q15M PRN IM DECREASED GLUCOSE; Start 04/19/17 at 14: 30 Glucose 15 gm 15 gm Q15M PRN BUCCAL DECREASED GLUCOSE; Start 04/19/17 at 14:30 Potassium Chloride/Sodium Chloride (1/2 NS + KCl 20 Meq) 1,000 ml @ 75 mls/hr [id number] IV Last administered on 04/20/17 08:52; Admin Dose 75 MLS/HR; Start 04/19/17 at 16:30 Insulin Glargine (Lantus) 10 unit DAILY@08 SC Last administered on 04/20/17 09:34; Admin Dose 10 UNIT; Start 04/20/17 at 08:00 Miscellaneous Medication (Bystolic) 20 mg BID PO Last administered on 09:32; Admin Dose 20 MG; Start 04/19/17 at 21:00 Hydralazine HCl (Apresoline) 20 mg Q2H PRN IV SBP > 180 Last administered on 13:58; Admin Dose 20 MG; Start 04/19/17 at 20:00 Captopril (Capoten) 50 mg QID PO Last administered on 04/20/17 12:40; Admin Dose 50 MG; Start 04/19/17 at 21:00 Ketorolac Tromethamine (Toradol) 30 mg Q6H PRN IV PAIN Last administered on 14:02; Admin Dose 30 MG; Start 04/20/17 at 02:30; Stop 04/23/17 at 02: 29 YANDEL SCHULTZ Apr 20, 2017 14:47
[2017-04-20] MEDS ORDERED: MAG SULFATE 2GM IN 50 ML IVPB ONE (15:00)
[2017-04-20] MEDS ORDERED: MAGNESIUM SULFATE (GM) 50% 2 ML INJ IVPB ONE (15:00)
--- NOTE | 2017-04-20 17:17 | RADRPT ---
Echocardiogram Report Patient Name: YANCY LEBRON Gender: Male Date: 1945 Study Date: 20-Apr-2017 [employer]roomcorn Scraper: Miguel Mallory [facility] Location: [id number] Ref. Physician: KIRSTIN LOPEZ Quality: Adequate Procedures: Transthoracic echocardiogram with complete 2D, M-Mode, and doppler examination. Indications: Hypertension. 2D/M Mode Doppler Measurement Value Normal Ranges Measurement Value Normal Ranges LVIDd 2D 4.7 3.5 - 5.6 cm AV Peak Ren 1.6 m/sec LVIDs 2D 2.7 2.1 - 4.1 cm AV Peak PG 9.9 mmHg LVPWd 2D 1.0 0.6 - 1.1 cm LVOT Peak Ren 1.3 m/sec IVSd 2D 0.9 0.6 - 1.1 cm LVOT Peak PG 6.4 mmHg AoR Diam 2D 2.8 2.0 - 3.7 cm MV E Peak Ren 0.7 m/sec EDV 2D 100.3 cm3 MV A Peak Ren 0.7 m/sec ESV 2D 20.5 cm3 MV E/A 0.9 LA Dimen 2D 3.0 2.3 - 4.0 cm MV Decel Time 193 msec MV Decel [place] 3 MV E/A 0.9 Findings Left Ventricle: Normal left ventricular systolic function. Normal left ventricular cavity size. Normal left ventricular wall thickness. Ejection fraction is visually estimated at 60 %. Tissue Doppler/Mitral Doppler indices are consistent with impaired relaxation (Stage I diastolic dysfunction). Right Ventricle: Normal right ventricular size. Normal right ventricular systolic function. Left Atrium: The left atrium is normal in size. Right Atrium: The right atrium is normal in size. Mitral Valve: Mitral valve leaflets appear mildly thickened. Mild mitral annular calcification. Trace mitral regurgitation. Aortic Valve: No significant aortic stenosis or insufficiency. Aortic cusps appear mildly calcified. Tricuspid Valve: Normal appearance of the tricuspid valve. Unable to obtain RVSP due to minimal presence of tricuspid regurgitation. Pulmonic Valve: Normal pulmonic valve appearance. Pericardium: Normal pericardium with no significant pericardial effusion. Aorta: Normal aortic root. IVC: Normal size and normal respiratory collapse consistent with normal right atrial pressure. Conclusions 1.Normal left ventricular systolic function. Normal left ventricular cavity size. Normal left ventricular wall thickness. Ejection fraction is visually estimated at 60 %. Tissue Doppler/Mitral Doppler indices are consistent with impaired relaxation (Stage I diastolic dysfunction). 2.Mitral valve leaflets appear mildly thickened. Mild mitral annular calcification. Trace mitral regurgitation. 3.No significant aortic stenosis or insufficiency. Aortic cusps appear mildly calcified. 4.Normal appearance of the tricuspid valve. Unable to obtain RVSP due to minimal presence of tricuspid regurgitation. Electronically Signed By: Kirstin Lopez 20-Apr-2017 17:16:23 -0800 Patient Name: YANCY LEBRON Study Date: 20-Apr-2017 [id number]
--- NOTE | 2017-04-20 19:09 | CONS ---
Date/Time of Note Date/Time of Note DATE: 04/20/17 TIME: 19:06 Consult Date/Type/Reason Admit Date/Time Apr 19, 2017 at 09:10 Initial Consult Date 04/19/17 Type of Consultation: cardiology Ordering Provider: CHAN WELCH MD Subjective cardiology follow up S: Discussed with the staff. Patient denies any chest pain or pressure to me denies any palpitation to me. He is still complaining of left flank pain intermittently becomes very severe. NO BLEEDING . NO HEAMTURIA. O: General: no acute distress HEENT: NC/AT. pupils are equal. round. NECK: NO JVD. no stridor. CV: RRR. systolic murmur; no gallop or rubs. PULM: no wheezing or rhonchi. GI: SOFT, NT, ND, no rebound or guarding Extremity: trace B/L LE edema. no clubbing. neuro: awake and alert, OX3. Psych: calm and pleasant rectal: deferred : deferred ECG NSR nonspecific T wave abn CT abd: 3 mm obstructing stone at the left ureterovesicular junction with mild left hydronephrosis and hydroureter. There is marked left perinephric and left periureteral inflammatory stranding and free fluid. Additional 4 mm left upper renal pole nonobstructing stone identified. 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 Recommend urologic consultation. Small sub-centimeter upper abdominal retroperitoneal lymph nodes are nonspecific. 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 Tiny 4 mm hyperdense nodules at the gallbladder neck. This may represent small gallstones or gallbladder polyp. ECHO reviewed : 1. Normal left ventricular systolic function. Normal left ventricular cavity size. Normal left ventricular wall thickness. Ejection fraction is visually estimated at 60 %. Tissue Doppler/Mitral Doppler indices are consistent with impaired relaxation (Stage I diastolic dysfunction). 2. Mitral valve leaflets appear mildly thickened. Mild mitral annular calcification. Trace mitral regurgitation. 3. No significant aortic stenosis or insufficiency. Aortic cusps appear mildly calcified. 4. Normal appearance of the tricuspid valve. Unable to obtain RVSP due to minimal presence of tricuspid regurgitation. Objective Vital Signs Date Time Temp Pulse Resp B/P Pulse Ox O2 Delivery O2 Flow Rate FiO2 04/20/17 16:00 97.9 77 18 135/63 96 Room Air Results/Medications Result Diagram: 11/21/17 0440 04/20/17 0441 Results 24 hrs Laboratory Tests Test 04/19/17 20:11 04/20/17 02:50 04/20/17 04:40 04/20/17 04:41 Bedside Glucose 160 127 White Blood Count 11.3 H Red Blood Count 4.41 #L Hemoglobin 13.0 #L Hematocrit 37.5 #L Mean Corpuscular Volume 85.0 Mean Corpuscular Hemoglobin 29.5 Mean Corpuscular Hemoglobin Concent 34.7 Red Cell Distribution Width 13.5 Platelet Count 88 #L Mean Platelet Volume 11.2 H Neutrophils % 75.9 Lymphocytes % 17.0 Monocytes % 6.5 Eosinophils % 0.1 Basophils % 0.1 Nucleated Red Blood Cells % 0.0 Neutrophils # 8.6 H Lymphocytes # 1.9 Monocytes # 0.7 Eosinophils # 0.0 Basophils # 0.0 Nucleated Red Blood Cells # 0.0 Prothrombin Time 14.0 Prothrombin Time Ratio 1.1 INR International Normalized Ratio 1.08 Activated Partial Thromboplast Time 28.8 Sodium Level 139 Potassium Level 4.0 Chloride Level 105 Carbon Dioxide Level 23 Anion Gap 15 # Blood Urea Nitrogen 22 H Creatinine 1.32 H Glucose Level 136 # Hemoglobin A1c 7.9 H Calcium Level 8.5 Magnesium Level 1.4 L Total Bilirubin 0.3 Direct Bilirubin 0.00 Indirect Bilirubin 0.3 Aspartate Amino Transf (AST/SGOT) 43 Alanine Aminotransferase (ALT/SGPT) 62 Alkaline Phosphatase 52 Creatine Kinase 91 Total Protein 7.0 # Albumin 3.8 # Globulin 3.20 Albumin/Globulin Ratio 1.18 Triglycerides Level 129 Cholesterol Level 145 LDL Cholesterol, Calculated 81 HDL Cholesterol 38 Cholesterol/HDL Ratio 3.8 Thyroid Stimulating Hormone (TSH) 1.100 Free Thyroxine 1.09 Test 04/20/17 07:40 04/20/17 12:31 04/20/17 17:04 Bedside Glucose 195 167 151 Medications Current Medications Clonidine HCl (Catapres-Tts 3 Patch) 1 patch Q7D TRANSDERM Last administered on 04/19/17t 16:16; Admin Dose 1 PATCH; Start 04/19/17 at 16:00 Diagnostic Test (Pha) 1 ea 1 ea 02 XX ; Start 04/20/17 at 02:00 Ceftriaxone Sodium (Rocephin) 50 ml @ 100 mls/hr Q24H IVPB Last administered on 04/20/17 08:36; Admin Dose 100 MLS/HR; Start 04/20/17 at 09:00 Hydralazine HCl (Apresoline) 10 mg Q6H PRN IV ELEVATED BLOOD PRESSURE; Start 04/19/17 at 14:30 Morphine Sulfate (morphine) 2 mg Q4H PRN IV PAIN LEVEL 7-10 Last administered on 04/20/17 14:46; Admin Dose 2 MG; Start 04/19/17 at 14:30 Ondansetron HCl (Zofran Inj) 4 mg Q6H PRN IV NAUSEA AND/OR VOMITING; Start at 14:30 Acetaminophen (Tylenol Tab) 650 mg Q6H PRN PO PAIN AND OR ELEVATED TEMP; Start 04/19/17 at 14:30 Miscellaneous Information 1 ea NOTE XX ; Start 04/19/17 at 14:30 Glucose (Glutose) 15 gm Q15M PRN PO DECREASED GLUCOSE; Start 04/19/17 at 14:30 Glucose (Glutose) 22.5 gm Q15M PRN PO DECREASED GLUCOSE; Start 04/19/17 at 14: 30 Dextrose (D50w Syringe) 25 ml Q15M PRN IV DECREASED GLUCOSE; Start 04/19/17 at 14:30 Dextrose (D50w Syringe) 50 ml Q15M PRN IV DECREASED GLUCOSE; Start 04/19/17 at 14:30 Glucagon (Glucagen) 1 mg Q15M PRN IM DECREASED GLUCOSE; Start 04/19/17 at 14: 30 Glucose 15 gm 15 gm Q15M PRN BUCCAL DECREASED GLUCOSE; Start 04/19/17 at 14:30 Potassium Chloride/Sodium Chloride (1/2 NS + KCl 20 Meq) 1,000 ml @ 75 mls/hr [id number] IV Last administered on 04/20/17 08:52; Admin Dose 75 MLS/HR; Start 04/19/17 at 16:30 Insulin Glargine (Lantus) 10 unit DAILY@08 SC Last administered on 04/20/17 09:34; Admin Dose 10 UNIT; Start 04/20/17 at 08:00 Miscellaneous Medication (Bystolic) 20 mg BID PO Last administered on 09:32; Admin Dose 20 MG; Start 04/19/17 at 21:00 Hydralazine HCl (Apresoline) 20 mg Q2H PRN IV SBP > 180 Last administered on 13:58; Admin Dose 20 MG; Start 04/19/17 at 20:00 Captopril (Capoten) 50 mg QID PO Last administered on 04/20/17 17:30; Admin Dose 50 MG; Start 04/19/17 at 21:00 Ketorolac Tromethamine (Toradol) 30 mg Q6H PRN IV PAIN Last administered on 18:41; Admin Dose 30 MG; Start 04/20/17 at 02:30; Stop 04/23/17 at 02: 29 Assessment/Plan Chief Complaint/Hosp Course 1. HTN urgency: currently better controlled. 2. Acute nephrolithiasis 3. Diabetes 4. dyslipidemia 5. Abnormal EKG due to above 6. Abnormal CT scan c/w malignancy Recommendations: Diabetic management as per internal medicine IV fluid has been started. f/u with urology consultation rec. I will continue with the Bystolic 20 mg p.o. twice daily. Clonidine patch will be continued as well. will add norvasc and cont captopril for now and will change to ARB on long acting BEAR tomorrow. Thank you for his referral. We will continue to follow along with you. KIRSTIN ULRICH MD [facility] Problems: KIRSTIN ULRICH MD Apr 20, 2017 19:09
[2017-04-20] MEDS ORDERED: AMLODIPINE 5 MG TAB PO SCH (21:00)
[2017-04-21] VITALS: PULSE 72
[2017-04-21 00:30] VITALS: BP 129/68; PULSE 80; RESP 20
[2017-04-21] MEDS: ACCU-CHEK XX SCH (02:13)
[2017-04-21 04:00] VITALS: PULSE 74
[2017-04-21 04:35] VITALS: BP 133/73; PULSE 74; RESP 18
[2017-04-21] MEDS: morphine 2 MG INJ IV PRN (05:29)
[2017-04-21] MEDS ORDERED: LOSARTAN 50 MG TAB PO SCH (09:00)
--- NOTE | 2017-04-21 18:31 | DS ---
Date/Time of Note Date/Time of Note DATE: 04/21/17 TIME: 18:30 Discharge Summary Admission/Discharge Info Admit Date/Time Apr 19, 2017 at 09:10 Discharge Date/Time Hospital Course Patient left AMA on 1122 at 7:20 AM -Acute nephrolithiasis, 3mm stone in the distal left ureter. Dr. North is following in neurology consultation. Continue pain management antibiotics and Flomax. Continue to strain urine. -Left kidney pole mass, possible partial nephrectomy as an outpatient -Hypertensive urgency, Dr Lopez is following in cardiology consultation -Diabetes mellitus with hemoglobin A1c 7.9. Continue Lantus and NovoLog. Home Meds Reported Medications Clonidine Patch (CLONIDINE PATCH) 0.3 Mg/24 Hr Patch, 1 PATCH.WK TD Q7D, #4 PATCH.WK 04/19/17 Nebivolol Hcl* (Bystolic*) 20 Mg Tablet, 20 MG PO DAILY, #30 TAB 04/19/17 Glimepiride* (Glimepiride*) 4 Mg Tablet, 4 MG PO BID WITH MEALS, TAB 04/19/17 Linagliptin/Metformin HCl (Jentadueto Xr 2.5 mg-1,000 mg) 1 Each Tab.bp.24h, 1 EACH PO BID, TAB 04/19/17 Primary Care Provider Not On Staff Doctor Pending Labs Laboratory Tests Test 04/20/17 21:36 04/21/17 02:12 Bedside Glucose 192mg/dL (70-220) 148mg/dL (70-220) YANDEL SCHULTZ Apr 21, 2017 18:31
== END 2017-04-21 07:21 | disposition left against medical advice (07) | DRG 694 ==
LOC: E/R 07:01 → MS3 09:10
PROVIDERS: ADMIT Internal Medicine; ATTEND Internal Medicine
DX: N13.2 Hydronephrosis with renal and ureteral calculous obstruction (principal); E11.9 Type 2 diabetes mellitus without complications; I10 Essential (primary) hypertension; E78.5 Hyperlipidemia, unspecified; I16.0 Hypertensive urgency; N28.9 Disorder of kidney and ureter, unspecified
CPT/HCPCS: 36415; 74000; 74177; 80053; 80061; 81001; 82550; 82962; 83036; 83605; 83690; 83735; 84439; 84443; 85025; 85610; 85730; 87040; 87086; 93005; 93306; 96374; 96375; J0360; J0696; J1170; J1815; J1885; J2270; J2405; J3475; J3480; J7030; Q9967